=== PATIENT | female | born 1995 | race Caucasian/White ===

== ENCOUNTER 2016-10-01 17:40 | Inpatient (IN) | payer OTHER, MEDICAID ==
--- NOTE | 2016-10-01 18:22 | ED Physician Chart ---
Chief Complaint/HPI - Patient Information Date Seen:: 10/01/16 Time Seen:: 18:16 Chief Complaint:: asthma exac History of Present Illness:: pt here for sob x few days..worse today. pt has a hx of severe asthma w admits to hospital 5x/yr. pt lives in [place] but was up here to visit her dad and then felt wors so came to ED. pt has cp but this has been a constant x last 3 yrs. no hx of cardiac dz on prior w/u's. she has been on narcotic for the cp for some time. pt used her albuterol sev times wo relief today. she is frequently on steroids but not lately on any. she called her pmd today after not feeling better w her albuterol rescue and pmd advised her to take xanax..she took 2 but still not feeling better. Pt has hx of anxiety attacks also. pt has a cough which is dry/nonproductive. pt has Breo inhaler at home also. pt is a nonsmoker. she blames her lung dz on her fathers habit of smoking in the car w her. previous drs have discussed her needing a lung transplant in future. she feels anxious. no leg pains or edema. pt claims her asthma is so severe she has 3x had cardiac arrest and had to be intubated in past. Allergies:: Allergies Allergy/AdvReac Type Severity Reaction Status Date / Time aspirin Allergy Verified 10/01/16 17:50 Vitals:: Vital Signs - 8 hr 10/01/16 17:50 Temp 97.9 F HR 129 RR 20 BP 107/76 O2 Sat % 94 Historian:: Patient Review of Systems - Review of Systems General/Constitutional: No fever, No chills, No weight loss, No weakness, No diaphoresis, No edema, No loss of appetite Skin: No skin lesions, No rash, No bruising Head: No headache, No light-headedness Eyes: No loss of vision, No pain, No diplopia ENT: No earache, No nasal drainage, No sore throat, No tinnitus Neck: No neck pain, No swelling, No thyromegaly, No stiffness, No mass noted Cardio Vascular: Chest pain, No chest pain, No palpitations, No PND, No orthopnea, No edema Pulmonary: SOB, Cough, No sputum, Wheezing GI: No nausea, No vomiting, No diarrhea, No pain, No melena, No hematochezia, No constipation, No hematemesis G/U: No dysuria, No frequency, No hematuria Musculoskeletal: No bone or joint pain, No back pain, No muscle pain Endocrine: No polyuria, No polydipsia Psychiatric: No prior psych history, No depression, No anxiety, No suicidal ideation Hematopoietic: No bruising, No lymphadenopathy Allergic/Immuno: No urticaria, No angioedema Neurological: No syncope, No focal symptoms, No weakness, No paresthesia, No headache, No seizure, No dizziness, No confusion, No vertigo Past Medical History - Past Medical History Past Medical History: Asthma/COPD, Other (anxiety attacks) Social History: Non Smoker Medication: Reviewed Physical Exam - Physical Examination General/Constitutional: Awake, Well-developed, well-nourished, Alert, No distress, GCS 15, Non-toxic appearing, Ambulatory Head: Atraumatic Eyes: Lids, conjuctiva normal, PERRL, EOMI Skin: Nl inspection, No rash, No skin lesions, No ecchymosis, Well hydrated, No lymphadenopathy ENMT: External ears, nose nl, Nasal exam nl, Lips, teeth, gums nl Neck: Nontender, Full ROM w/o pain, No JVD, No nuchal rigidity, No bruit, No mass, No stridor Respiratory: Nl effort/Exclusion, Clear to Auscultation Other Respiratory comments:: diffuse wheeze. pt able to speak full sentences wo pressure. mod anxiety. no pharyngeal lesions. tms cl b. no nasal dc. Cardio Vascular: RRR, No murmur, gallop, rubs, NL S1 S2 GI: No tenderness/rebounding/guarding, No organomegaly, No hernia, Normal BS's, Nondistended, No mass/bruits, No McBurney tenderness : No CVA tenderness Extremities: No tenderness or effusion, Full ROM, normal strength in all extremities, No edema, Normal digits & nails Neuro/Psych: Alert/oriented, DTR's symmetric, Normal sensory exam, Normal motor strength, Judgement/insight normal, Mood normal, Normal gait, No focal deficits Misc: normal gait, Normal back, No paraspinal tenderness Labs/Radiology/EKG Results - Lab Results Results: Laboratory Tests 10/01/16 10/01/16 10/01/16 18:00 18:30 18:30 WBC 10.0 RBC 5.01 Hgb 15.8 H Hct 46.2 H MCV 92.1 MCH 31.5 H MCHC Differential 34.2 RDW 13.7 Plt Count 192 MPV 10.1 Neutrophils % 62.9 Lymphocytes % 14.0 L Monocytes % 8.2 Eosinophils % 13.3 H Basophils % 1.6 Sodium 132 L Potassium 3.4 L Chloride 105 Carbon Dioxide 19.4 L Anion Gap 11.0 BUN 10 Creatinine 0.6 Est GFR ( Amer) > 60.0 Est GFR (Non-Af Amer) > 60.0 BUN/Creatinine Ratio 16.7 Glucose 93 Calcium 9.1 Total Bilirubin 0.7 AST 15 ALT 9 Alkaline Phosphatase 43 Troponin I Total Protein 7.4 Albumin 4.4 Globulin 3.0 Albumin/Globulin Ratio 1.5 Urine Test NEGATIVE 10/01/16 18:30 WBC RBC Hgb Hct MCV MCH MCHC Differential RDW Plt Count MPV Neutrophils % Lymphocytes % Monocytes % Eosinophils % Basophils % Sodium Potassium Chloride Carbon Dioxide Anion Gap BUN Creatinine Est GFR ( Amer) Est GFR (Non-Af Amer) BUN/Creatinine Ratio Glucose Calcium Total Bilirubin AST ALT Alkaline Phosphatase Troponin I < 0.01 L Total Protein Albumin Globulin Albumin/Globulin Ratio Urine Test - Radiology Results Results: cxr nad - EKG Interpretations EKG Time:: 19:10 Rhythm: nsr mild tachy [place]: 71 Rate: 107 Assessment - Assessment General Assessment: (6:20p) this hospital no longer carries xopinex..confirmed w supervisor propellant charge loading Anne as this would be the best med rt now but is unavailable (due to tach 130) Critical Care Time: 70 Excludes all billable procedures: Yes This condition life threatening/high prob of deterioration: Yes ED Septic Shock - . Is Septic Shock (SBP<90, OR Lactate>4 mmol\L) present?: No - <6hrs of presentation: Vital Signs: Vital Signs - 8 hr 10/01/16 17:50 Temp 97.9 F HR 129 RR 20 BP 107/76 O2 Sat % 94 Reassessment (Disposition) - Reassessment Reassessment:: pt doing well saO2 improved some. pt speaks full sentences easily. dw pt that her sx seem improved after solumedrol and she seems calmer. I have concerns that she believes she is more ill than current clinical picture...pt is very argumentative and adamant that she does not feel well to go home. feels she is in great danger....is striking w stories about her near experiences...pt claims her asthma is so severe she has 3x had cardiac arrest and had to be intubated in past. she feels I am not taking her seriously..although I am VERY concerned about some of the medical advice she claims she has been getting (such as that she should be permanently in a wheelchair...) xochitl Resendez at 8;30 pm ...will admit for asthma tx and observation Reassessment Condition:: Improved - Diagnosis Diagnosis:: 1 asthma exacerbation 2 anxiety - Aftercare/Follow up Instructions Aftercare/Follow-Up Instructions:: Counseled pt regarding lab results/diagnosis & need follow up - Patient Disposition Admitted to:: Telemetry Condition at Disposition:: Improved
[2016-10-01 18:34] LABS: % BASOPHILS 1.6 % (0.0-2.0); % EOSINOPHILS 13.3 % (0.0-5.0); % MONOCYTES 8.2 % (2.0-10.0); % NEUTROPHILS 62.9 % (40.0-80.0); HEMATOCRIT 46.2 % (35.0-45.0); HEMOGLOBIN 15.8 gm/dL (11.7-15.5); MEAN CELL VOLUME 92.1 fl (81-100); MEAN CORPUSCULAR HEMOGLOBIN 31.5 pg (27.0-31.0); MEAN CORPUSCULAR HGB CONC 34.2 pg (28.0-36.0); MEAN PLATELET VOLUME 10.1 fl; NEUTROPHILE ABSOLUTE 6.3 Th/cmm (1.8-8.0); PLATELET COUNT 192 Th/cmm (150-400); RED BLOOD COUNT 5.01 Mil/cmm (3.80-5.10); RED CELL DISTRIBUTION WIDTH 13.7 % (11.5-20.0)
[2016-10-01 18:50] LABS: ALB/GLOB RATIO 1.5 (1.0-1.8); ALKALINE PHOSPHATASE 43 U/L (34-104); BILIRUBIN,TOTAL 0.7 mg/dL (0.3-1.0); BUN - UREA NITROGEN 10 mg/dL (7-25); BUN/CREATININE RATIO 16.7; CALCIUM SERUM 9.1 mg/dL (8.6-10.3); CARBON DIOXIDE 19.4 mEq/L (21.0-31.0); CHLORIDE 105 mEq/L (98-107); CREATININE - SERUM 0.6 mg/dL (0.6-1.2); GLUCOSE 93 mg/dL (70-105); POTASSIUM SERUM 3.4 mEq/L (3.5-5.1); SGOT 15 U/L (13-39); SGPT/ALT 9 U/L (7-52); SODIUM SERUM 132 mEq/L (136-145)
--- NOTE | 2016-10-01 20:08 | Admit Criteria Form ---
Admit Criteria Forms - Admit Criteria Diagnosis: ASTHMA Clinical Indications for Admission to Inpatient Care (Place 'X' for any and all applicable criteria): Admission is indicated for ANY ONE of the following (1)(2)(3)(4)(5): [ ]I. Absent or markedly diminished breath sounds (silent chest) [ ]II. Oxygen saturation < 92% [ ]III. PaCO2 = / > 42 mm Hg (5.6 kPa) [ ]IV. Peak expiratory flow rate < 40% of predicted or personal best after treatment. [ ]V. Peak expiratory flow rate < 33% of predicted or personal before after treatment [ ]. Change in mental status [ ]VII. Ventilatory support required [ ]VIII. PaO2 < 60 mm Hg (8.0 kPa) [ ]IX. Cyanosis [ ]X. Cardiac dysrhythmia (e.g., bradycardia) [ ]XI. Hemodynamic instability [ ]XII. Radiographic evidence of complication requiring inpatient treatment (e.g., pneumonia, pneumothorax) [X]XIII. Inpatient admission required rather than observation care (also use Asthma: Observation Care guideline as appropriate) because of ANY ONE of the following: [X]a) Respiratory finding that is severe or persistent (eg, dyspnea, tachypnea, accessory muscle use) [ ]b) Airflow measurements less than 60% of predicted or personal best that persist (e.g., over 24 hours) or worsen despite treatments [ ]c) Supplemental oxygen or respiratory treatments for over 24 hours that are performable only in acute inpatient setting [ ]d) Other condition, treatment or monitoring requiring inpatient admission. Extended stay beyond goal length of stay may be needed for (26)(27)(28): [ ]a) Severe respiratory failure (23) (29) (30) [ ]b) Secondary causes and complications (25) [ ]c) Status asthmaticus [ ]d) Chronic obstructive asthma [ ]e) Older patients (29) [ ]f) Slow resolution [ ]g) Clinically significant exacerbation of comorbidities (eg, raj. heart failure, atrial fibrillation) The original [facility] content created by [facility] has been revised. The portions of the content which have been revised are identified through the use of italic text or in bold, and [facility] has neither reviewed nor approved the modified material. All other unmodified content is copyright [facility] Please see references footnoted in the original [facility] edition 2016 Admit Criteria Met?: Yes
[2016-10-01] MEDS ORDERED: Albuterol/Ipratropium Neb 3 ML AERS HHN ONE ×2 (20:13→20:52)
[2016-10-01] MEDS ORDERED: Sodium Chloride 0.9% 1,000 ML IV SCH (22:29)
[2016-10-01] MEDS ORDERED: Albuterol/Ipratropium Neb 3 ML AERS HHN PRN (22:43)
[2016-10-01] MEDS ORDERED: cefTRIAXone 1 GM in Sodium Chloride 0.9% 50 ML IV SCH (23:00)
[2016-10-02] MEDS: Azithromycin 500 MG in Sodium Chloride 0.9% 250 ML IV SCH ×2 (01:46→23:16)
[2016-10-02] MEDS: methylPREDNISolone SS 40 mg Vial IVP SCH ×4 (05:20→20:20)
[2016-10-02] MEDS: Albuterol/Ipratropium Neb 3 ML AERS HHN SCH ×4 (07:47→19:52)
[2016-10-02 10:49] LABS: % BASOPHILS 0.2 % (0.0-2.0); % EOSINOPHILS 0.3 % (0.0-5.0); % LYMPHOCYTES 13.5 % (20.0-50.0); % MONOCYTES 1.6 % (2.0-10.0); % NEUTROPHILS 84.4 % (40.0-80.0); HEMOGLOBIN 13.9 gm/dL (11.7-15.5); MEAN CELL VOLUME 93.6 fl (81-100); MEAN CORPUSCULAR HEMOGLOBIN 31.5 pg (27.0-31.0); MEAN CORPUSCULAR HGB CONC 33.6 pg (28.0-36.0); MEAN PLATELET VOLUME 10.3 fl; NEUTROPHILE ABSOLUTE 6.7 Th/cmm (1.8-8.0); PLATELET COUNT 190 Th/cmm (150-400); RED BLOOD COUNT 4.41 Mil/cmm (3.80-5.10); RED CELL DISTRIBUTION WIDTH 13.4 % (11.5-20.0)
[2016-10-02 10:51] LABS: HEMATOCRIT 41.2 % (35.0-45.0); WHITE BLOOD COUNT 7.9 Th/cmm (4.8-10.8)
[2016-10-02 11:05] LABS: ALB/GLOB RATIO 1.4 (1.0-1.8); ALKALINE PHOSPHATASE 37 U/L (34-104); ANION GAP 3.4 (7.0-16.0); BILIRUBIN,TOTAL 0.3 mg/dL (0.3-1.0); BUN - UREA NITROGEN 12 mg/dL (7-25); CALCIUM SERUM 8.9 mg/dL (8.6-10.3); CARBON DIOXIDE 19.7 mEq/L (21.0-31.0); CHLORIDE 111 mEq/L (98-107); CREATININE - SERUM 0.5 mg/dL (0.6-1.2); GLUCOSE 119 mg/dL (70-105); POTASSIUM SERUM 4.1 mEq/L (3.5-5.1); SGOT 13 U/L (13-39); SGPT/ALT 9 U/L (7-52); SODIUM SERUM 130 mEq/L (136-145)
--- NOTE | 2016-10-02 11:23 | Diagnostic Imaging Report ---
Portable chest x-ray History: Cough Allowing for portable technique the heart size is normal. No focal pulmonary parenchymal processes. No hilar or mediastinal abnormalities. Impression: No acute abnormalities.
--- NOTE | 2016-10-02 12:51 | History & Physical ---
CHIEF COMPLAINT: Severe dyspnea. HISTORY OF PRESENT ILLNESS: This is a 21-year-old female with a longstanding history of asthma since childhood, who presents to the ER with severe shortness of breath x 4-5 days. On average, the patient gets admitted to the hospital about 5 times a year given her severe asthma/COPD. She also suffers from anxiety given the shortness of breath and has been taking Ativan with mild improvement, but as mentioned above, her symptoms have gradually gotten worse and she had to come to the ER where she was noted to be tachycardic and she had severe wheezing. Despite multiple treatments with nebulizers and Solu-Medrol, she still was noted to be tachy and short of breath. O2 sats on 4 liters about 94%. The patient has been admitted to the telemetry staples for further management and care. PAST MEDICAL HISTORY: History of asthma since early age and history of anxiety. PAST SURGICAL HISTORY: None. FAMILY HISTORY: There is history of asthma on mom's side. SOCIAL HISTORY: Denies any tobacco or ETOH. She was exposed to secondhand smoke for many years as a child. Apparently, her father is a chain smoker. ALLERGIES: ALLERGIC TO ASPIRIN. OUTPATIENT MEDICATIONS: Xanax 1 mg q. 6 hours p.r.n., Claritin 10 mg every day, Singulair 10 mg every day, and citrulline 50 mg every day. REVIEW OF SYSTEMS: CONSTITUTIONAL: The patient does admit to tactile fever and chills. CARDIAC: Occasional chest pain/tightness when sob. Does complain of palpitations at times. PULMONARY: Please refer to HPI. She does have a cough with productive phlegm. GASTROINTESTINAL: No bowel habit changes. GENITOURINARY: No bladder habit changes. NEUROLOGIC: No changes in vision and no syncope. PHYSICAL EXAMINATION: VITAL SIGNS: Temperature 97.3, pulse 92, respirations 17, blood pressure 90/48, satting 99% on 2 liters. GENERAL: Well nourished, well-developed, tired looking female, but arousable, able to answer simple questions, boyfriend is at bedside answering most of the questions. HEAD AND NECK: Normocephalic, atraumatic. Pupils reactive to light. CARDIOVASCULAR: Regular rate and rhythm with no murmurs. LUNGS: She has got diffuse inspiratory and expiratory wheezing. No audible rhonchi or crackles. ABDOMEN: Soft, supple, nontender, nondistended, normoactive bowel sounds. EXTREMITIES: No edema in lower extremities. NEUROLOGIC: Grossly intact and nonfocal. LABORATORY DATA: White count 10.0, H and H 15/46, platelet count 192. Sodium 132, potassium 3.4, chloride 105, CO2 19, BUN 10, creatinine 0.6 and a glucose 93. Troponins on admission were negative. Urine test is negative. DIAGNOSTICS: Chest x-ray, mild increased interstitial lung markings likely reactive airway disease, but no consolidation. EKG, sinus tachycardia 107, no ST elevations or depressions. IMPRESSION: 1. Acute asthma exacerbation. 2. History of chronic severe asthma. 3. Anxiety and depression. PLAN: The patient has been admitted to a telemetry staples for close monitoring and treatment. She has been placed on Solu-Medrol 80 mg IV q. 8 hours and empirically on IV antibiotics, namely Rocephin and Zithromax. DuoNebs will be implemented q. 4 hours while awake and p.r.n. A Pulmonary consult will also be asked for further management and care. JOB# [id number] [facility]
[2016-10-02] MEDS ORDERED: Sodium Chloride 0.9% 1,000 ML IV SCH (15:30)
[2016-10-02] MEDS ORDERED: Hydrocodone/APAP 5mg/325mg Tab PO PRN (15:47)
[2016-10-02] MEDS: HYDROmorphone 1 mg/mL 1mL Syr IVP PRN ×2 (16:38→23:17)
[2016-10-02] MEDS ORDERED: Naloxone 0.4 mg/mL 1mL Vial ONE (16:58)
[2016-10-02] MEDS: cefTRIAXone 1 GM in Sodium Chloride 0.9% 100 ML IV SCH (21:37)
[2016-10-03] MEDS: methylPREDNISolone SS 40 mg Vial IVP SCH ×3 (01:22→08:48)
--- NOTE | 2016-10-03 04:37 | Consultation ---
Patient of Dr. Brian Collado. Thank you, Dr. Collado, for this consultation. HISTORY OF PRESENT ILLNESS: This is a 21-year-old female with history of severe asthma since age of 14. The patient states she also has COPD. I am not sure about that statement, but the patient states that she had exposed extensively to smokers since early age, potentially some non-reversible airway disease similar to COPD. The patient has been in the hospital at least 5 times a year. She lives in [place]. She goes to her doctors in [place]. Last time she was in the hospital was in July in [facility]. She is on high-dose prednisone. She has yet open prescription for prednisone. She goes up to 50 mg a day, tapered down to 10 a day, which she stays on normally in best case scenario. PAST MEDICAL HISTORY: As above. SOCIAL HISTORY: Nonsmoker, but exposed to smokers apparently, but not recently. She has tried marijuana with her boyfriend she said. She smokes it, but not in recent. She denies other drug use. She drinks alcohol occasionally. PHYSICAL EXAMINATION: VITAL SIGNS: Temperature is 97.9, pulse 95, respirations 17, blood pressure 98/52, saturation 99% on room air. HEENT: Atraumatic, normocephalic. Pupils react to light and accommodation. Ears, nose and throat normal. NECK: Supple. No JVD. CHEST: Diffuse wheezing and rhonchi bilaterally. HEART: Regular rate and rhythm. ABDOMEN: Soft. EXTREMITIES: No edema. LABORATORY DATA: Chest x-ray: There is significant hyperinflation. WBC 7.9, hemoglobin 13.9. Sodium is 138, potassium 4.1, BUN 12, creatinine 0.5. IMPRESSION: This is a 21-year-old female with severe asthma, steroid dependent. with exacerbation at times with acute bronchitis. PLAN: 1. high-dose steroids. 2. IV antibiotics. 3. Nebulizer treatment. I will follow up the patient. Thank you very much for this consultation. JOB# [id number] L[place]SE[place]
[2016-10-03] MEDS: Albuterol/Ipratropium Neb 3 ML AERS HHN SCH ×5 (07:30→19:11)
[2016-10-03] MEDS: HYDROmorphone 1 mg/mL 1mL Syr IVP PRN ×2 (09:59→17:42)
--- NOTE | 2016-10-03 10:35 | Diagnostic Imaging Report ---
CHEST X-RAY: AP view INDICATION: Asthma COMPARISON: 10/01/2016 FINDINGS: Hyperinflated lungs are noted. There is no focal consolidation or pleural effusions The heart is normal in size. The osseous structures demonstrate no acute abnormalities. IMPRESSION: Hyperinflated lungs with no focal consolidation identified.
[2016-10-03] MEDS ORDERED: Flumazenil 0.1 m/mL 5mL Vial IVP STA (19:00)
[2016-10-03] MEDS ORDERED: Naloxone 0.4 mg/mL 1mL Vial IM ONE (19:00)
[2016-10-03] MEDS ORDERED: Naloxone 0.4 mg/mL 1mL Vial IV ONE ×2 (19:00→23:30)
[2016-10-03] MEDS ORDERED: Naloxone 0.4 mg/mL 1mL Vial ONE (19:02)
[2016-10-03] MEDS ORDERED: Flumazenil 0.1 m/mL 5mL Vial IVP ONE (19:06)
[2016-10-03] MEDS: cefTRIAXone 1 GM in Sodium Chloride 0.9% 100 ML IV SCH ×2 (20:57→21:15)
[2016-10-04] MEDS ORDERED: Naloxone 0.4 mg/mL 1mL Vial IV ONE (00:30)
--- NOTE | 2016-11-17 13:40 | Discharge Summary ---
ADMITTING DIAGNOSIS: Acute asthma exacerbation. SECONDARY DIAGNOSES: History of chronic severe asthma, history of anxiety, and depression. DISCHARGE DIAGNOSIS: Acute asthma exacerbation, clinically improved. Acure on chronic anxiety. SUBSCRIPTION CLERK: Dr. Schaeffer, Pulmonary Medicine. MAJOR PROCEDURES: There were no major procedures done during this admission. MEDICATIONS ON DISCHARGE: From home: Claritin 10 mg every day, Singulair 10 mg daily, sertraline 50 mg every day, Xanax p.r.n. for anxiety, prednisone taper. For the rest of the medications, please refer to the HPI. No meds were prescribed given that she left AMA. BRIEF HOSPITAL COURSE: A 21-year-old female with longstanding history of asthma since childhood who presented to the ER with severe shortness of breath for about 4-5 days. The patient stated that she gets admitted to the hospital about 5 times a year given her asthma/COPD. The patient also worsens from anxiety and this also worsens her respiratory issue or symptoms. The patient was treated in the ER with multiple nebulizer treatments and Solu-Medrol, but despite this, she was tachy and short of breath. O2 sats initially were recorded at 94% on 4 liters nasal cannula. The patient was admitted to the telemetry staples given her findings, was placed on empiric IV antibiotics, IV fluids, and corticosteroids. The patient also was seen by medical records specialist, and by hospital day #1, she reported improved symptoms. However, pt was complaining of generilized pain and anxiety for which she was recieving IV pain meds which were tried to be weaned, but pt became more anxious and actually demanded more pain killers and to be transferred to a different hospital. SW eval was ordered. Pt was found on the floor hyperventilating around HOD#2 and was transferred to ICU. X-ray on admission showed no acute abnormalities and a followup x-ray showed hyperinflated lungs with no focal consolidation noted. She was placed on Venturi mask while at the ICU with good sats and vital signs. Given her anxiety, consult with Psychiatry was also asked for. The patient's symptoms remained stable, but she opted to leave AMA from ICU care. Risks of this action was d/w by nurses with patient. JOB# [id number] [facility]
== END 2016-10-04 00:30 | DRG 202 ==
LOC: ER 17:40 → TELE 20:33 → ICU 10-03 19:00
PROVIDERS: ADMIT Internal Medicine; ATTEND Internal Medicine
DX: J45.901 Unspecified asthma with (acute) exacerbation (principal); E87.1 Hypo-osmolality and hyponatremia; J20.9 Acute bronchitis, unspecified; F32.9 Major depressive disorder, single episode, unspecified; F41.9 Anxiety disorder, unspecified; Z88.6 Allergy status to analgesic agent
CPT/HCPCS: 36415-UA; 71010-TC; 80053-TC; 81025-TC; 82948-90; 83735-TC; 84484-TC; 85025-TC; 85652-TC; 90779; 93005; 94760; 96374; 96375; J0456; J0696; J1170; J2060; J2405; J2920; J2930; J7030; X6614; Z7502; Z7610